=== PATIENT | male | born 1950 | race Caucasian/White ===

== ENCOUNTER 2016-09-04 07:15 | Inpatient (IN) | payer MEDICAID ==
[~2016-09-04] VITALS: Ht 172.7 cm; Wt 54.3 kg
[~2016-09-04 07:15] MED LIST: ACET325T14 PO; AZIT500T77 PO; CALC-666 PO; ERTA1VIA IVPush; LEVE500T53 PO; No meds per pt.; POLY17PO5 PO; SENN-31 PO
[2016-09-04] MEDS ORDERED: SODIUM CHLORIDE 0.9% 1,000 ML IV ONE (07:58)
[2016-09-04] MEDS ORDERED: SODIUM CHLORIDE FLUSH 10ML SYR IVF ONE (08:00)
[2016-09-04] MEDS ORDERED: LORazepam 2 MG/ML, 1ML IVPush ONE (08:30)
[2016-09-04 09:33] LABS: ASPARTATE AMINO TRANSFERASE 17 U/L (15-37); BLOOD UREA NITROGEN 13 mg/dL (7-18)
[2016-09-04 09:45] LABS: ACETAMINOPHEN < 2 mcg/mL (10-30); IS PT STATUS REG ER OR PRE ER? YES
[2016-09-04 09:56] LABS: DAU SCREEN DISCLAIMER
[2016-09-04] MEDS ORDERED: SODIUM CHLORIDE 0.9% 1,000 ML IV SCH (12:46)
[2016-09-04] MEDS ORDERED: hydrALAzine 20 MG/ML, 1ML IVPush PRN (13:00)
[2016-09-04] MEDS ORDERED: DOCUSATE 100 MG CAPSULE PO PRN (13:00)
[2016-09-04] MEDS ORDERED: LORazepam 2 MG/ML, 1ML IVPush PRN (13:00)
[2016-09-04] MEDS ORDERED: POLYETHYLENE GLYCOL 17 GM PACKET PO PRN (13:00)
[2016-09-04] MEDS ORDERED: ACETAMINOPHEN 325 MG TABLET PO PRN (13:00)
[2016-09-04] MEDS ORDERED: ONDANSETRON 2MG/ML, 2ML IVPush PRN (13:00)
[2016-09-04 13:25] LABS: IS PT STATUS REG ER OR PRE ER? YES
[2016-09-04] MEDS: ENOXAPARIN 40 MG/0.4 ML SQ SCH (16:14)
[2016-09-04 16:39] VITALS: BP 110/66
[2016-09-04 19:41] VITALS: BP 114/72
[2016-09-04] MEDS: CALCIUM CARBONATE 500 MG TABLET PO SCH (20:15)
[2016-09-04] MEDS: LEVETIRACETAM 500 MG TABLET PO SCH (20:15)
[2016-09-05 03:00] VITALS: BP 119/81
[2016-09-05 07:35] VITALS: BP 125/79
[2016-09-05] MEDS: LEVETIRACETAM 500 MG TABLET PO SCH ×2 (09:40→21:19)
[2016-09-05] MEDS: CALCIUM CARBONATE 500 MG TABLET PO SCH ×2 (09:41→21:19)
[2016-09-05 12:56] VITALS: BP 104/65
[2016-09-05] MEDS ORDERED: LEVE500T53 PO (15:01)
[2016-09-05] MEDS: ENOXAPARIN 40 MG/0.4 ML SQ SCH (15:49)
[2016-09-05 19:40] VITALS: BP 102/66
[2016-09-06 02:03] VITALS: BP 120/71
[2016-09-06 05:37] LABS: ASPARTATE AMINO TRANSFERASE 10 U/L (15-37); BLOOD UREA NITROGEN 17 mg/dL (7-18)
[2016-09-06 08:30] VITALS: BP 105/70
[2016-09-06] MEDS ORDERED: LEVE500T53 PO (08:48)
[2016-09-06] MEDS: LEVETIRACETAM 500 MG TABLET PO SCH (09:24)
[2016-09-06] MEDS: CALCIUM CARBONATE 500 MG TABLET PO SCH (09:24)
== END 2016-09-06 12:22 | disposition home or self-care (01) | DRG 917 ==
LOC: ED 09:04 → EDIP 11:35 → 3NE 14:29
DX: T43.621A Poisoning by amphetamines, accidental (unintentional), initial encounter (principal); G92 Toxic encephalopathy; E44.0 Moderate protein-calorie malnutrition; Z68.1 Body mass index [BMI] 19.9 or less, adult; G40.909 Epilepsy, unspecified, not intractable, without status epilepticus; F15.10 Other stimulant abuse, uncomplicated; D16.02 Benign neoplasm of scapula and long bones of left upper limb; M25.512 Pain in left shoulder; M25.511 Pain in right shoulder; Z91.14 Patient's other noncompliance with medication regimen; Z82.49 Family history of ischemic heart disease and other diseases of the circulatory system; Z91.19 Patient's noncompliance with other medical treatment and regimen
CPT/HCPCS: 36415; 70450; 80053; 80307; 80329; 81003; 82140; 83735; 84100; 84443; 84484; 85025; 93005; 96360; 96361; J1650; G0480; J7030